=== PATIENT | male | born 1940 | race Caucasian/White ===

== ENCOUNTER 2024-01-26 15:15 | Outpatient (CLI) | payer OTHER, SELFPAY ==
--- NOTE | 2024-01-26 14:53 | MR_ITS ---
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 TECHNIQUE: Multiplanar, multisequence imaging is performed through the brain. Additional 3 mm imaging performed in multiple planes through the internal auditory canal. Postcontrast imaging with 20 ml's of MultiHance. No acute intracranial hemorrhage, midline shift, edema or mass effect. Mild atrophy and mild small vessel ischemic disease. No large territory infarct. No signal abnormalit y in the cerebellum. Ventricles and extra-axial spaces are normal. No inferior displacement of cerebellar tonsils. Clivus and pituitary gland are normal. Internal and external auditory canals: Unremarkable. Cranial nerves VII and VIII complexes: Unremarkable. No enhancement or mass. 5th cranial nerve entry zone is also negative. Cerebellopontine angles: Normal. Paranasal sinuses: Normal. Mastoid air cells: Normal. Calvarium and scalp: Normal. Visualized [place] and dural venous sinuses demonstrate no abnormality. MR/MR iac's wo/w con* [id number] IMPRESSION: 1. No enhancing masses or signal abnormality at the cerebellopontine angles or internal auditory canals. 2. No acute infarct. No enhancing mass. 3. Mild volume loss and small vessel disease. 4. Mild bilateral hippocampal atrophy.
[2024-01-26] MEDS: gadobenate dimeglumine 20 mL vial IV (15:56)
== END 2024-01-26 15:16 | disposition home or self-care (01) ==
PROVIDERS: Family Provider Emergency Medicine Emergency Medical Services; PCP Emergency Medicine Emergency Medical Services; Visit Provider Nurse Practitioner
DX: H90.3 Sensorineural hearing loss, bilateral (principal)
CPT/HCPCS: 70553; A9577

== ENCOUNTER 2024-06-02 09:03 | Outpatient (CLI) | payer OTHER, SELFPAY ==
--- NOTE | 2024-06-02 09:09 | USCV_ITS ---
Judah Arnold Age: 83 Gender: M : 1940 Exam Date: 06/02/2024 09:21 Ordering Phys: Kaitlin Scott MD Technologist: [facility] Exam Location: [facility] [place] Indication: AAA HISTORY: Diameter (cm) AP x Transverse x Length Velocity (cm/s) Waveform Prox Aorta: 2.00 x 2.20 x 20.90 Triphasic Mid Aorta: 2.50 x 3.10 x 50.90 Triphasic Distal Aorta: 1.90 x 2.60 x 90.40 Triphasic Right Iliac Prox: 1.50 x 1.70 x 44.10 Triphasic Left Iliac Prox: 2.40 x 3.40 x 124.00 Triphasic Stent Prox Landing x x Aneurysmal Sac Max x x Lt Lat Sac Dim Rt Lat Sac Dim Stent Dist Landing x x Right Iliac Stent x x Left Iliac Stent x x Right Renal Art Left Renal Art FINDINGS: CONCLUSIONS No evidence of abdominal aortic aneurysm. 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
== END 2024-06-02 09:04 | disposition home or self-care (01) ==
LOC: RAD 09:06
PROVIDERS: Family Provider Emergency Medicine Emergency Medical Services; PCP Emergency Medicine Emergency Medical Services; Visit Provider Family Medicine
DX: I72.3 Aneurysm of iliac artery (principal); I70.0 Atherosclerosis of aorta
CPT/HCPCS: 93978